=== PATIENT | female | born 1970 | race Caucasian/White ===

== ENCOUNTER 2021-03-05 06:20 | Inpatient (IN) ==
[2021-03-05] MEDS ORDERED: cefOXitin 2,000 MG in Water for inj. (sterile) 20 ML IVP ONE (07:20)
[2021-03-05] MEDS ORDERED: Ringers Solution, Lactated 1,000 ML IVC SCH ×2 (07:30→11:14)
[2021-03-05] MEDS ORDERED: Lidocaine/EPI 1:200k 1% PF 10 ML VIAL ONE (08:00)
[2021-03-05] MEDS ORDERED: Sugammadex Sodium 200 MG/2 ML VIAL IV ONE ×2 (08:03→12:16)
[2021-03-05] MEDS ORDERED: *HR* Midazolam HCl 2 MG/2 ML VIAL ONE (08:03)
[2021-03-05] MEDS ORDERED: Lidocaine -MPF 2% 2 ML VIAL ONE (08:03)
[2021-03-05] MEDS ORDERED: *HR* Rocuronium Bromide 50 MG/5 ML VIAL ONE ×2 (08:03→09:19)
[2021-03-05] MEDS ORDERED: Ondansetron 4 MG/2 ML VIAL ONE (08:03)
[2021-03-05] MEDS ORDERED: *HR* FentaNYL (PF) 100 MCG/2 ML VIAL ONE (08:03)
[2021-03-05] MEDS ORDERED: *HR* Propofol 200 MG/20 ML VIAL IVP ONE (08:04)
[2021-03-05] MEDS ORDERED: *HR* HYDROMORPHONE 2 MG/ML VIAL ONE (09:17)
[2021-03-05] MEDS ORDERED: Ketorolac 30 MG/ML VIAL ONE (10:10)
[2021-03-05] MEDS ORDERED: Ondansetron 4 MG/2 ML VIAL IVP PRN (11:14)
[2021-03-05] MEDS ORDERED: Sennosides 8.6 MG TABLET PO PRN (11:14)
[2021-03-05] MEDS ORDERED: Naloxone 0.4 MG/ML INJ IVP PRN (11:14)
[2021-03-05] MEDS: *HR* OxyCODONE Immed Rel 5 MG TABLET PO PRN ×2 (11:42→17:59)
[2021-03-05] MEDS: Ibuprofen 600 MG TABLET PO PRN ×2 (13:05→19:00)
[2021-03-05] MEDS: Acetaminophen 325 MG TABLET PO PRN ×2 (13:05→18:59)
[2021-03-05] MEDS ORDERED: *HR* OxyCODONE Immed Rel 5 MG TABLET PO ONE (14:04)
[2021-03-05] MEDS: *HR* Metformin 500 MG TABLET PO SCH (20:35)
[2021-03-05] MEDS: Simethicone 80 MG TAB.CHEW PO PRN (20:38)
[2021-03-06] MEDS: Ibuprofen 600 MG TABLET PO PRN (00:28)
[2021-03-06] MEDS: Acetaminophen 325 MG TABLET PO PRN (00:29)
[2021-03-06] MEDS: Simethicone 80 MG TAB.CHEW PO PRN ×2 (04:48→07:54)
[2021-03-06] MEDS: *HR* Metformin 500 MG TABLET PO SCH (07:54)
[2021-03-06] MEDS ORDERED: hydroCHLOROthiazide 25 MG TABLET PO SCH (09:00)
[2021-03-06] MEDS ORDERED: Metoprolol XL (24 HR) Succ 50 MG TAB.ER.24H PO SCH (09:00)
[2021-03-06] MEDS: *HR* OxyCODONE Immed Rel 5 MG TABLET PO PRN (10:36)
[2021-03-06 14:49] VITALS: BP 116/74; PULSE 75; TEMP 98.7; O2SAT 97
== END 2021-03-06 19:30 | disposition home or self-care (01) | DRG 519 ==
LOC: SAMDAY 06:20 → 1NENUOBS 11:04
PROVIDERS: ADMIT Student in an Organized Health Care Education/Training Program; ATTEND Student in an Organized Health Care Education/Training Program
PROC: GYNLAVH (ICD-10-PCS; 2021-03-05 08:30)